=== PATIENT | male | born 1950 | race Two or more races ===

== ENCOUNTER 2018-12-26 14:21 | Emergency (ER) | payer MEDICARE, OTHER ==
[~2018-12-26] VITALS: Ht 167.6 cm; Wt 79.1 kg
[2018-12-26 14:45] VITALS: BP 133/76
[2018-12-26] MEDS ORDERED: cefTRIAXone SOD 1,000 MG VL IM ONE (15:00)
== END 2018-12-26 15:41 | disposition home or self-care (01) ==
LOC: ER 14:21
DX: J03.90 Acute tonsillitis, unspecified (principal); E11.9 Type 2 diabetes mellitus without complications; I10 Essential (primary) hypertension
CPT/HCPCS: 96372; 99283; J0696